=== PATIENT | female | born 1970 | race Two or more races ===

== ENCOUNTER 2018-05-14 22:14 | Emergency (ER) | payer SELFPAY ==
[~2018-05-14] VITALS: Ht 154.9 cm; Wt 60.8 kg
[2018-05-14 23:39] LABS: Basophils # (auto) 0.1 uL; Basophils % (auto) 0.6 % (0.0-2.0); Eosinophils # (auto) 0.6 uL; Eosinophils % (auto) 5.5 % (0.0-7.0); Hemoglobin 14.2 g/dL (12.2-16.2); Lymphocytes % (auto) 27.7 % (10.0-50.0); Mean Corpuscular Hemoglobin 30.4 pg (28.0-32.0); Mean Corpuscular Hgb Conc. 33.8 g/dL (32.0-36.0); Mean Corpuscular Volume 89.8 fL (80.0-100.0); Monocytes # (auto) 0.9 uL; Monocytes % (auto) 8.1 % (0.0-12.0); Neutrophils # (auto) 6.4 uL; Neutrophils % (auto) 58.1 % (37.0-80.0); Platelet Count (auto) 230 10^3/uL (140-450); Red Blood Cells 4.67 10^6/uL (4.0-5.20); Red Cell Distribution Width 13.7 % (11.8-14.3)
[2018-05-14 23:50] LABS: Urine Bacteria MANY /hpf (None Seen); Urine Blood 1+ /uL (Negative); Urine Specific Gravity 1.006 (1.001-1.035); Urine WBC 3 /hpf (0 - 5)
[2018-05-14 23:56] LABS: INR 0.93 (0.9-1.15)
[2018-05-14 23:58] LABS: Albumin 3.9 g/dL (3.4-5.0); BUN/Creatinine Ratio 23.9; Calcium 8.8 mg/dL (8.5-10.1); Magnesium 2.2 mg/dL (1.6-2.6); Potassium 3.9 mmol/L (3.5-5.1)
[2018-05-15] MEDS ORDERED: NALBUPHINE HCL 10 MG/1ml INJECTION IV ONE
[2018-05-15] MEDS ORDERED: ONDANSETRON HCL 4 MG/2 ML VIAL IV ONE
[2018-05-15 00:01] LABS: Bilirubin, Total 0.5 mg/dL (0.2-1.0); Total Protein 8.1 g/dL (6.4-8.2)
[2018-05-15] MEDS ORDERED: cefTRIAXone 1GM/10ml IVPUSH 10 ML IV ONE (00:15)
[2018-05-15] MEDS ORDERED: metroNIDAZOLE 500 MG TAB PO ONE (03:00)
[2018-05-15 03:01] VITALS: BP 122/71
== END 2018-05-15 03:01 | disposition home or self-care (01) ==
LOC: ER 22:14
DX: K52.9 Noninfective gastroenteritis and colitis, unspecified (principal); N34.2 Other urethritis; Z90.710 Acquired absence of both cervix and uterus
CPT/HCPCS: 36415; 74176; 80053; 81001; 82150; 83690; 83735; 84484; 85025; 85610; 85730; 93005; 94761; 96374; 96375; 99285; J0696; J2300; J2405